=== PATIENT | male | born 1965 | race Caucasian/White ===

== ENCOUNTER 2018-01-11 07:23 | Outpatient (CLI) | payer OTHER | END 2018-01-11 07:41 | disposition home or self-care (01) | LOC: NUCLEAR 07:23 | DX: E05.00 Thyrotoxicosis with diffuse goiter without thyrotoxic crisis or storm (principal) | CPT/HCPCS: 78012; A9531 ==

== ENCOUNTER 2018-01-12 07:36 | Outpatient (CLI) | payer OTHER | END 2018-01-12 07:47 | disposition home or self-care (01) | LOC: NUCLEAR 07:36 | DX: E05.00 Thyrotoxicosis with diffuse goiter without thyrotoxic crisis or storm (principal) | CPT/HCPCS: 78013; A9512 ==